=== PATIENT | male | born 1955 | race Caucasian/White ===

== ENCOUNTER 2024-07-04 13:28 | Outpatient (CLI) | payer MEDICARE, SELFPAY ==
--- NOTE | ~2024-07-04 | CT_ITS ---
CT Scan of the Chest without Contrast: Clinical Indication: Lung cancer screening, nicotine dependence Technique: Contiguous sections were acquired throughout the chest without intravenous contrast. Dose reduction technique was used on this scan by utilizing automated exposure control and iterative recon struction technique. The dose-length product (DLP) was 100.82 mGy-cm. Findings: There is no evidence of any significant mediastinal, hilar or axillary lymphadenopathy. The mediastin al soft tissues appear normal. There is no evidence of pleural or pericardial effusion. 3 mm left basilar pulmonary nodule present (axial image 121). There is lingular scarring. Images through the upper abdomen reveal no abnormalities. Impression: Lung RADS 2: Benign appearance. 12 month follow-up screening CT advised. Reviewed, dictated and finalized at location . Impression: Lung RADS 2: Benign appearance. 12 month follow-up screening CT advised.
--- OUTSIDE RECORDS SUMMARY | 2024-07-04 13:33 | XMS_ITS | Clinical Summary ---
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 Role Phone Unavailable Primary Care Provider Unavailabl e Allergies Active Allergy Reactions Criticality Noted Date Comments Penicillins Unknown 01/24/2018 Medications citalopram (CeleXA) 20 mg tabletIndication s:Anxiety and depression TAKE 1 TABLET BY MOUTH DAILY DIRECTED 90 Tablet 3 1 Active montelukast (SINGULAIR) 10 mg tabletIndication s:Mild intermittent asthma without complication TAKE 1 TABLET BY MOUTH DAILY 90 Tablet 1 1 Active traZODone (DESYREL) 50 mg tablet TAKE 1 AND 1/2 TABLETS BY MOUTH AT BEDTIME 135 Tablet 1 1 Active lisinopriL (PRINIVIL) 10 mg tabletIndication s:Benign hypertension TAKE 1 TABLET BY MOUTH DAILY 90 Tablet 1 1 Active busPIRone (BUSPAR) 5 mg tabletIndication s:Acute reaction to situational stress Take 1 Tablet (5 mg) by mouth 3 times daily as needed for Other (See Comment) (anxiety). 60 Tablet 1 Active sildenafiL (VIAGRA) 100 mg tabletIndication s:Erectile dysfunction, unspecified erectile dysfunction type TAKE 1 TABLET 1 TIME DAILY NEEDED FOR ERECTILE DYSFUNCTION. 18 Tablet 1 Active albuterol sulfate 90 mcg/Actuation inhalerIndicatio ns:Mild intermittent asthma without complication USE 2 INHALATIONS BY MOUTH EVERY 6 HOURS NEEDED FOR SHORTNESS OF BREATH 34 Gram 3 2 Active Active Problems Problem Noted Date Diagnosed Date Cannabis dependence, daily use 08/20/2020 Former smoker 08/20/2020 Benign hypertension 01/24/2018 Sleep disturbances 01/24/2018 Mild intermittent asthma without complication Erectile dysfunction 01/24/2018 Depression 01/24/2018 Marijuana use 01/24/2018 Tobacco use disorder 01/24/2018 History of colon polyps 01/24/2018 Immunizations Immunization Administration Dates Next Due (ADACEL/BOOSTRIX)(10 YR UP) TDAP VACCINE, 0.5ML, IM 01/28/2020 (PNEUMOVAX 23)(50 YRS UP) PN EUMOCOCCAL POLYSACCHARIDE (PPV23) 0.5 ML, IM 08/20/2020 INFLUENZA VACCINE HIGH DOSE QUADRIVALENT 65 YR U P PF IM 12/17/2019 INFLUENZA VACCINE QUADRIVALENT 3 YR UP PF IM 08/2017 INFLUENZA VACCINE QUADRIVALENT 6 MOS UP PF IM Family History Medical History Relation Name Comments Depression Daughter Other Daughter Diabetes Father Unknown Maternal Grandfather Depression Mother Diabetes Mother Heart Disease Mother High Cholesterol Mother Melanoma Mother Unknown Paternal Grandfather Asthma Sister Depression Sister Diabetes Sister High Cholesterol Sister Lung Cancer Sister Depression Son Relation Name Status Comments Daughter Father Maternal Grandfather Mother Paternal Grandfather Sister Son Social History Tobacco Use Types Packs/Day Years Used Date Smoking Tobacco: Former Cigarettes 1 5 0 03/26/2014 - 03/26/2019 Smokeless Tobacco: Never Tobacco Cessation:Ready to Q uit: No; Counseling Given: Yes Alcohol Use Standard Drinks/Week Comments Yes 0 (1 standard drink = 0.6 oz pur e alcohol) Financial Resource Strain Answer Date R ecorded How hard is it for you to pa y for the very basics like food, housing, medical care, and heating? Not hard at all 08/20/2020 Food Insecurity Answer Date Recorded In the past 12 months, have you worried that your food would run out before you had money to buy more? Never true 08/20/2020 In the past 12 months, did y ou run out of food and didn't have money to buy more? Never true 08/20/2020 Transportation Needs Answer Date Record ed In the past 12 months, has l ack of transportation kept you from medical appointments or from getting medications? 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 Oxygen Saturation 97% 09/10/2020 10: 24 AM CDT Inhaled Oxygen Concentration - - Weight 77.5 kg (170 lb 12.8 oz) 021 10:24 AM CDT Height 175.3 cm (5' 9 ) 09/10/2020 10:2 4 AM CDT Body Mass Index 25.22 09/10/2020 10:24 AM CDT Plan of Treatment Health Maintenance Due Date Last Done Comments COLORECTAL SCREENING 06/15/1999 Colorectal Cancer Screening 06/15/1999 FIT-DNA Q 3 years 06/15/1999 FIT/FOBT Q 1 year 06/15/1999 Flex Sig/CT Colonography Q 5 years 06/15/1999 ZOSTER VACCINE (1 of 2) 2004 PNEUMOCOCCAL VACCINE 50+ YEA RS (2 of 2 - PCV) 08/20/2021 08/20/2020 INFLUENZA VACCINE (#1) 2023 , 11/21/2018, 10/27/2017 COVID-19 Vaccine (3 - 2023- season) 10/22/202301/2021, 05/11/2020 RSV VACCINE (60+ or ) (1 - 1-dose 75+ series) 2029 DTAP/TDAP/TD VACCINES (2 - T d or Tdap) 01/27/2030 01/28/2020 Insurance [facility] [id number]
--- OUTSIDE RECORDS SUMMARY | 2024-07-04 13:34 | XMS_ITS | Data Portability ---
Author Organization [place] [facility] - [facility] [place] Address [address] [place] [address] Assessment Encounter Date Assessment Date Assessment LastModified by Organization Details LastModified Time 12/09/2022 12/09/2022 Pt here with below diagnosis - pt here for evaluation for their condition, evaluation of their medication use, and discussion for alternative treatments. Not available 12/09/2022 11:36:31 12/12/2022 12/12/2022 Patient was seen today for follow up visit. We discussed patients future use of MMJ. We discussed the risks and benefits. Pt understands that we will certify patient, but the recommendation does not constitute a prescription for medical cannabis. Patient will receive an email from us with instructions on how to proceed by the evening of the next business day. Not available 12/12/2022 10:59:43 Plan of Treatment Reminders Order Date Submit Date Provider Last Modified By Organization Details Last Modified Time Details Appointments None record ed. Lab None record ed. Referral None record ed. Procedures None record ed. Surgeries None record ed. Imaging None record ed. Medication Orders None record ed. Patient TargetsNo targets recorded. Patient Instructions Encounter Date Encounter Id Patient Instructions Last Modified By Organization Details Last Modified Time 12/09/2022 [id number] prostate cancer: care instructions [facility] Not available 12/09/2022 11:36:56 I have discussed the risks and benefits of Medical Marijuana. Pt understands I am not prescribing this medication. I am certifying that this patient has a condition that is recognized by the state as qualifying for medical marijuana and this recommendation does not constitute a prescription for medical cannabis. Pt understands that my physician written certification form does not guarantee Medical Marijuana certification nor does it endorse the patient as needing medical marijuana. Patient understands that Medical Marijuana is a drug that the federal government has classified cannabis as a Schedule I controlled substance. Schedule 1 substances are defined, in part, as having (1) a high potential for abuse; (2) no currently accepted medical use in treatment in the [place]; and (3) a lack of accepted Safety for use under medical supervision. Federal law prohibits the manufacture, distribution and possession of cannabis even in states, which have modified their state laws to treat cannabis as a medicine. Pt also agrees that me, and the [facility] are my treating physicians and that we are in charge of treating the patient's conditions and that the patient will make a good nicolas effort to remain under my treatment plan and acknowledge there will be follow up visits from this date forward to monitor the patient's condition. Discussed risks and benefits of Medical Marijuana. I have spent time discussing the patients condition, pain/medical management of the patient given their debilitating condition, the risks and benefits of this medication, a history and physical, gathering old medical records to look at the disease processes being evaluated, and answering of all questions. [email or web address] 1 Not available 12/09/2022 11:36:31 12/12/2022 [id number] [facility]: [facility] Not available 12/12/2022 11:00:20 I have discussed the risks and benefits of Medical Marijuana. Pt understands I am not prescribing this medication. I am certifying that this patient has a condition that is recognized by the state as qualifying for medical marijuana and this recommendation does not constitute a prescription for medical cannabis. Pt understands that my physician written certification form does not guarantee Medical Marijuana certification nor does it endorse the patient as needing medical marijuana. Patient understands that Medical Marijuana is a drug that the federal government has classified cannabis as a Schedule I controlled substance. Schedule 1 substances are defined, in part, as having (1) a high potential for abuse; (2) no currently accepted medical use in treatment in the [place]; and (3) a lack of accepted Safety for use under medical supervision. Federal law prohibits the manufacture, distribution and possession of cannabis even in states, which have modified their state laws to treat cannabis as a medicine. Pt also agrees that me, and the [facility] are my treating physicians and that we are in charge of treating the patient's conditions and that the patient will make a good nicolas effort to remain under my treatment plan and acknowledge there will be follow up visits from this date forward to monitor the patient's condition. Discussed risks and benefits of Medical Marijuana. I have spent time discussing the patients condition, pain/medical management of the patient given their debilitating condition, the risks and benefits of this medication, a history and physical, gathering old medical records to look at the disease processes being evaluated, and answering of all questions. [email or web address] Not available 12/12/2022 10:59:44 Reason for Referral None Reported. Medical Equipment None Reported. Medications Name Sig Start Date Stop Date Status Note LastModified by Organization Details LastModified Time atorvastatin 10 mg tablet active Not Available Not Available Not Available citalopram 20 mg tablet active Not Available Not Available No t Available trazodone 100 mg tablet active Not Available Not Available No t Available lisinopril 10 mg tablet active Not Available Not Available No t Available montelukast 10 mg tablet active Not Available Not Available No t Available albuterol sulfate HFA 90 mcg/actuation aerosol inhaler active Not Available Not Available Not Available Trelegy Ellipta 100 mcg-62.5 mcg-25 mcg powder for inhalation active Not Available Not Available N ot Available Vitals None Recorded Social History None recorded. Functional Status None recorded. Mental Status None recorded. Family History Nothing Reported. Medical History No medical history recorded. Past Encounters Encounter ID Performer Location Encounter Start Date Encounter Closed Date Diagnosis/Indication Diagnosis SNOMED-CT Code Diagnosis ICD10 Code Diagnosis Note [id number] Hector Tenorio MD [facility] [place] [address] 12/09/2022 10:20:28 12/09/2022 11:59:26 Malignant neoplasm of prostate [id number] C61 [id number] MD Carin RubyCumed [facility],[address] [place] [address] 12/12/2022 10:59:17 12/15/2022 00:40:23 Malignant neoplasm of prostate [id number] C61 Health Concerns Section Related Observation LastModified by Organization Detai ls LastModified Time None Recorded Concern Status LastModified by Organization Details LastModified Time None Recorded Advance Directives Directive None Recorded Payers Insurance Date Sequence Insurance Name Policy Number Policy Martin Covered Member ID Martin Member ID Guarantor Name 12/07/2022 1 *SELF PAY* Espinoza jessica Webb Notes Date Note Type Note Provider Name and Address Organization Details Recorded Time 12/09/2022 text/html The patient woul d like to discuss medications, the disease, and how to handle it. Pt would also like to discuss alternative treatments to this condition. Pt was referred here for further evaluation and treatment if necessary. Patient has a diagnosis of qualifying condition - [facility] [address], [place], [address], [facility] 12/09/2022 11:37:24 12/12/2022 text/html The patient woul d like to discuss medications, the disease, and how to handle it. Pt would also like to discuss alternative treatments to this condition. Pt was referred here for further evaluation and treatment if necessary. Patient has a diagnosis of qualifying condition - prostate cancer Pt here for 2nd visit to discuss condition and develop a relationship. We discussed the above and future use of medical marijuana. JARRED FLYNN PA-C [address], [address], [place], [address], [place] [facility] 12/12/2022 11:00:24
--- NOTE | 2024-07-05 17:14 | WPDPFTINT ---
PFT Procedure Performed PFT Procedure Performed Spirometry with Pre/Post Bronchodilator Plethysmography (Lung Vol) Diffusing Cap (DLCO) Flow Vol Loop PFT Interpretation This is a pulmonary function test with pre and post-bronchodilator spirometry, plethysmography and diffusing capacity. The test was performed and results interpreted in accordance with the 2019 and 2005 ATS/ERS Task Force guidelines respectively using the Global Lung Function Initiative-2012 reference equations. Patient demonstrated good effort and cooperation. Reproducibility criteria were met. The quality of the pre bronchodilator spirometry maneuver was Grade A and post bronchodilator spirometry maneuver was Grade A. Findings: Spirometry: There is decreased maximal expiratory airflow at all lung volumes with concave expiratory flow tracing. The contour the inspiratory flow tracing is normal. The pre bronchodilator FVC is 3.81 L, 96% predicted. The pre bronchodilator FEV1 is 1.72 L, 57% predicted. The pre bronchodilator FEV1: FVC ratio is 45%. The post bronchodilator FVC is 3.87 L, representing a 1% increase. The post bronchodilator FEV1 is 1.84 L, representing a 7% increase. The post bronchodilator FEV1: FVC ratio is 48%. Plethysmography: The total lung capacity is 7.67 L, 115% predicted. The functional residual capacity is 4.83 L, 138% predicted. The residual volume is 3.86 L, 164% predicted. The residual volume: Total lung capacity ratio is 50%. Diffusing capacity: The diffusing capacity unadjusted for hemoglobin and carboxyhemoglobin is 22.3, 88% predicted. The diffusing capacity adjusted for alveolar volume is 3.71, 92% predicted. Impression: There is a moderately severe obstructive abnormality. There is no significant improvement after inhaling a single dose of albuterol. The increase in residual volume to total lung volume ratio is consistent with hyperinflation from an obstructive abnormality. The diffusing capacity is normal. There are no prior studies for comparison
--- NOTE | 2024-07-05 17:17 | WPDSIXMINUTE ---
Six Minute Walk Procedure Procedure Performed Pulmonary Stress Test (6 min walk) Six Minute Walk Six Minute Walk: This is a 6 minute walk test. The test was performed and interpreted in accordance with the 2014 ERS/ATS task force guidelines. Findings: The patient's resting room air oxygen saturation measured by pulse oximetry was 97%, the heart rate was 58 bpm, and the modified Rolf dyspnea score was 0. Patient ambulated for 427 meters and oxygen saturation remained 94 to 96%. At the end of the study the heart rate was 82 bpm and the modified Rolf dyspnea score was 2. The patient did not qualify for supplemental oxygen at rest or with ambulation. There are no prior studies for comparison.
== END 2024-07-04 13:29 | disposition home or self-care (01) ==
PROVIDERS: PCP Family Medicine; Visit Provider Internal Medicine Critical Care Medicine
DX: Z12.2 Encounter for screening for malignant neoplasm of respiratory organs (principal); Z87.891 Personal history of nicotine dependence; J44.89 Other specified chronic obstructive pulmonary disease
CPT/HCPCS: 71271; 94060; 94618; 94726; 94729